=== PATIENT | female | born 2000 | race Caucasian/White ===

== ENCOUNTER → 2021-08-02 | Outpatient (CLI) | payer OTHER ==
[2021-07-31 09:34] VITALS: BP 112/57
[~2021-08-02] MED LIST: NALO4SPR NS
--- NOTE | 2021-08-02 16:35 | RAD ---
EXAM: XR CHEST 2V 08/02/2021 2:47 PM CLINICAL INDICATION: Chest pain COMPARISON: Chest radiograph 07/31/2021 TECHNIQUE: PA and lateral views of the chest FINDINGS: The heart and mediastinum are normal. Lungs are normally expanded. No consolidation, ple ural effusion, or pneumothorax. Pulmonary vascularity is normal. The thoracic skeleton is intact. IMPRESSION: No acute cardiopulmonary abnormality. Electronically signed by: Esthela Hernandez MD (08/02/2021 4:33 PM) [id number]
== END ==
LOC: RAD 14:37
PROVIDERS: ATTEND Physician Assistant Medical
DX: R07.89 Other chest pain (principal)
CPT/HCPCS: 71046